=== PATIENT | male | born 1980 | race Caucasian/White ===

== ENCOUNTER 2020-05-12 16:28 | Emergency (ER) | payer OTHER ==
[~2020-05-12 16:28] MED LIST: ACETAMINOPHEN500 M1 PO; FLEXERIL10 MG PO; LISINOPRIL40 MG PO; METFORMIN HCL500 MG PO; NORCO 5-325 TA1 EACH PO; VIT D-3 PO; VOLTAREN **OUT75 MG PO; ZOFRAN4 MG PO
== END 2020-05-12 18:40 | disposition home or self-care (01) ==
LOC: FER 16:28
DX: S20.212A Contusion of left front wall of thorax, initial encounter (principal); S60.512A Abrasion of left hand, initial encounter; S60.511A Abrasion of right hand, initial encounter; S80.212A Abrasion, left knee, initial encounter; W19.XXXA Unspecified fall, initial encounter; Y92.89 Other specified places as the place of occurrence of the external cause
CPT/HCPCS: 71101